=== PATIENT | male | born 1935 | race Caucasian/White ===

== ENCOUNTER → 2018-09-04 | Outpatient (CLI) | payer OTHER | LOC: M.RAD 15:54 | DX: R19.4 Change in bowel habit (principal) ==

== ENCOUNTER 2020-04-07 04:18 | Emergency (ER) | payer OTHER ==
[~2020-04-07] VITALS: Ht 175.3 cm; Wt 63.6 kg
[2020-04-07 06:35] VITALS: BP 117/51
== END 2020-04-07 06:37 | disposition home or self-care (01) ==
LOC: M.ERS 04:18
DX: F03.90 Unspecified dementia, unspecified severity, without behavioral disturbance, psychotic disturbance, mood disturbance, and anxiety (principal)